=== PATIENT | male | born 1975 | race Caucasian/White ===

== ENCOUNTER 2020-08-18 15:00 | Emergency (ER) | payer BC, OTHER ==
[~2020-08-18 15:00] MED LIST: FLEXERIL 10 MG10 MG PO; IBUPROFEN600 MG PO; ULTRAM50 MG PO; ZOFRAN ODT 4 MG4 MG SL
[2020-08-18 16:55] LABS: HEMOGLOBIN 16.6 gm/dl (14.0-17.5); RED BLOOD COUNT 5.27 M/UL (4.20-5.50); WHITE BLOOD COUNT 8.5 K/UL (4.5-11.0)
[2020-08-18 17:18] LABS: BUN/CREATININE RATIO 12 (0-10)
[2020-08-18] MEDS ORDERED: MOBIC15 MG PO (22:28)
== END 2020-08-18 22:43 | disposition home or self-care (01) ==
LOC: ER1 15:00
PROVIDERS: Family Medicine
DX: S29.012A Strain of muscle and tendon of back wall of thorax, initial encounter (principal); S39.012A Strain of muscle, fascia and tendon of lower back, initial encounter; R07.81 Pleurodynia; R10.11 Right upper quadrant pain; R11.0 Nausea; F17.200 Nicotine dependence, unspecified, uncomplicated; Z85.820 Personal history of malignant melanoma of skin; Z88.8 Allergy status to other drugs, medicaments and biological substances; Z91.040 Latex allergy status; Z91.041 Radiographic dye allergy status; X58.XXXA Exposure to other specified factors, initial encounter
CPT/HCPCS: 71046; 80053; 81001; 82550; 82553; 83690; 83874; 84484; 85025; 85379; 93005; 96374; 96375; 99284; J1885; J2270; J2360; J2405; Q9967

== ENCOUNTER → 2020-08-19 | Outpatient (CLI) | payer BC, OTHER ==
[~2020-08-19] MED LIST changes: +AMITRIPTYLINE H25 MG PO; +ASPIRIN EC81 MG PO; +BUSPIRONE HCL15 MG PO; +GABAPENTIN600 MG PO; +LIPITOR20 MG PO; +MOBIC15 MG PO; +TIZANIDINE HCL4 MG PO
== END ==
LOC: KOH-I 12:45
DX: M54.31 Sciatica, right side (principal); M25.78 Osteophyte, vertebrae; M47.814 Spondylosis without myelopathy or radiculopathy, thoracic region; M47.816 Spondylosis without myelopathy or radiculopathy, lumbar region
CPT/HCPCS: 72070; 72100

== ENCOUNTER → 2020-12-03 | Outpatient (CLI) | payer OTHER | LOC: EMI 09:00 | DX: G35 Multiple sclerosis (principal) | CPT/HCPCS: 70553; 72156; A9577 ==

== ENCOUNTER 2020-12-12 17:33 | Emergency (ER) | payer OTHER ==
[~2020-12-12 17:33] MED LIST changes: -AMITRIPTYLINE H25 MG PO; -ASPIRIN EC81 MG PO; -BUSPIRONE HCL15 MG PO; -GABAPENTIN600 MG PO; -LIPITOR20 MG PO; -TIZANIDINE HCL4 MG PO
[2020-12-12 17:55] LABS: HEMOGLOBIN 16.7 gm/dl (14.0-17.5); RED BLOOD COUNT 5.24 M/UL (4.20-5.50); WHITE BLOOD COUNT 7.8 K/UL (4.5-11.0)
[2020-12-12 18:24] LABS: BUN/CREATININE RATIO 13 (0-10)
== END 2020-12-12 19:50 | disposition home or self-care (01) ==
LOC: ER1 17:33
PROVIDERS: Emergency Medicine
DX: S06.0X1A Concussion with loss of consciousness of 30 minutes or less, initial encounter (principal); M54.2 Cervicalgia; W19.XXXA Unspecified fall, initial encounter
CPT/HCPCS: 70450; 71045; 72125; 72128; 72131; 72170; 80053; 80307; 81001; 83605; 85025; 85610; 85730; 86850; 86900; 86901; 99284; G0480; J2405; J3010

== ENCOUNTER 2021-01-06 15:54 | Observation (INO) | payer OTHER ==
[~2021-01-06] VITALS: Ht 182.9 cm; Wt 144.0 kg
[2021-01-06 17:09] LABS: HEMOGLOBIN 16.1 gm/dl (14.0-17.5); RED BLOOD COUNT 4.98 M/UL (4.20-5.50); WHITE BLOOD COUNT 6.4 K/UL (4.5-11.0)
[2021-01-06 17:37] LABS: BUN/CREATININE RATIO 14 (0-10)
[2021-01-06] MEDS ORDERED: GABAPENTIN600 MG PO (23:09)
[2021-01-06] MEDS ORDERED: AMITRIPTYLINE H25 MG PO (23:10)
[2021-01-06] MEDS ORDERED: BUSPIRONE HCL15 MG PO (23:11)
[2021-01-06] MEDS ORDERED: TIZANIDINE HCL4 MG PO (23:13)
[2021-01-08] MEDS ORDERED: MOBIC15 MG PO (18:51)
[2021-01-08] MEDS ORDERED: ASPIRIN EC81 MG PO (18:56)
[2021-01-08] MEDS ORDERED: LIPITOR20 MG PO (18:56)
== END 2021-01-08 19:23 | disposition home or self-care (01) ==
LOC: ER1 15:54 → CDU 18:56 → M/S 22:01
PROVIDERS: Physician Assistant; ADMIT Internal Medicine Infectious Disease
PROC: 4A023N7 Measurement of Cardiac Sampling and Pressure, Left Heart, Percutaneous Approach (ICD-10-PCS; principal; 2021-01-07)
PROC: B2111ZZ Fluoroscopy of Multiple Coronary Arteries using Low Osmolar Contrast (ICD-10-PCS; 2021-01-07)
PROC: B2151ZZ Fluoroscopy of Left Heart using Low Osmolar Contrast (ICD-10-PCS; 2021-01-07)
DX: R07.9 Chest pain, unspecified (principal); I25.10 Atherosclerotic heart disease of native coronary artery without angina pectoris; I10 Essential (primary) hypertension; F41.9 Anxiety disorder, unspecified; G89.4 Chronic pain syndrome; M54.9 Dorsalgia, unspecified; E66.01 Morbid (severe) obesity due to excess calories; Z68.41 Body mass index [BMI] 40.0-44.9, adult; Z20.822 Contact with and (suspected) exposure to COVID-19; Z91.013 Allergy to seafood; Z79.891 Long term (current) use of opiate analgesic; Z79.1 Long term (current) use of non-steroidal anti-inflammatories (NSAID); Z79.899 Other long term (current) drug therapy; Z87.891 Personal history of nicotine dependence; Z85.820 Personal history of malignant melanoma of skin
CPT/HCPCS: 36415; 71045; 80053; 82550; 82553; 82962; 83735; 83874; 84443; 84484; 85025; 85347; 93005; 93571; 99152; 99153; 99285; C1769; C1887; C1894; G0378; J1644; J2250; J3010; J7040; Q9967; U0002

== ENCOUNTER → 2021-05-11 | Outpatient (CLI) | payer OTHER ==
[~2021-05-11] MED LIST changes: +AMITRIPTYLINE H25 MG PO; +ASPIRIN EC81 MG PO; +BUSPIRONE HCL15 MG PO; +GABAPENTIN600 MG PO; +LIPITOR20 MG PO; +TIZANIDINE HCL4 MG PO
== END ==
LOC: KOH-I 09:16 → CT 06-03 10:00 → KOH-I 06-03 10:00
DX: S06.0X0A Concussion without loss of consciousness, initial encounter (principal)
CPT/HCPCS: 70450

== ENCOUNTER → 2021-10-23 | Outpatient (CLI) | payer OTHER | LOC: MRI 10-14 09:15 → EMI 16:27 → MRI 16:45 | DX: G35 Multiple sclerosis (principal) | CPT/HCPCS: 70551 ==

== ENCOUNTER → 2022-03-18 | Outpatient (CLI) | payer BC, OTHER | LOC: EMI 10:51 | DX: M54.50 Low back pain, unspecified (principal); M51.36 Other intervertebral disc degeneration, lumbar region; M48.061 Spinal stenosis, lumbar region without neurogenic claudication | CPT/HCPCS: 72148 ==